=== PATIENT | male | born 1995 | race African-American/Black ===

== ENCOUNTER 2022-05-08 19:37 | Emergency (ER) | payer SELFPAY ==
[2022-05-08 19:41] VITALS: BP 131/56; PULSE 67; RESP 16; TEMP 36.4; O2SAT 99; BMI 27.3
--- NOTE | 2022-05-08 19:43 | ED_ITS ---
HPI - Skin/Abscess/Foreign Bdy General Chief complaint: Skin/Abscess/Foreign Body Stated complaint: Ringworms Time Seen by Provider: 05/08/22 19:43 Source: patient Mode of arrival: ambulatory Limitations: no limitations History of Present Illness HPI narrative: 27-year-old male presents to the ER for evaluation of dry itchy patches of skin on his abdomen that started 3 weeks ago, and now has 2 small areas on his face. The areas are intermittently itchy, dry and well demarcated. He thinks he has ringworm. The 1 on his abdomen is much improved but the ones on his face are more pronounced. He denies any other lesions on the body. No history of eczema. No fevers. MD complaint: rash Onset (ago): week(s) Location: face Severity: mild Quality: pruritic Pain Consistency: intermittent Relieving factors: none Exacerbating factors: none Context: none Associated symptoms: denies other symptoms Treatments prior to arrival: none Related Data Previous Rx's Medication Instructions Recorded nystatin 100,000 unit/gram topical 1 appl topical TID #30 grams 05/08/22 ointment Allergies Allergy/AdvReac Type Severity Reaction Status Date / Time No Known Allergies Allergy Verified 05/08/22 19:44 Review of Systems Review of Systems: Yes all other systems are reviewed and are negative Physical Exam Vital Signs: Vital Signs: Last Vital Signs Temp 97.5 F 05/08/22 19:41 Pulse 67 05/08/22 19:41 Resp 16 05/08/22 19:41 BP 131/56 L 05/08/22 19:41 Pulse Ox 99 05/08/22 19:41 O2 Del Method 05/08/22 19:41 BMI result Body Mass Index 27.3 Appearance: Alert. Oriented X3. No acute distress. HEENT: normal inspection CVS: Normal heart rate and rhythm. Pulses normal. Respiratory: No respiratory distress. Skin: Skin warm and dry. Normal skin color. Normal skin turgor. There are 2 well-demarcated patches of dry, irritated skin on the chin and left side of his forehead. There is mild discoloration on the abdominal wall, 1 cm around without any raised borders or active rash Extremities: normal inspection x4 Neuro: Oriented X 3. Grossly normal, non Medical Decision Making Differential Diagnosis Differential Diagnoses: The differential diagnosis associated with the presentation includes Tinea corporis, eczema, atopic dermatitis, cellulitis, allergic reaction, less likely cellulitis Prescription Management I considered prescription management with: Antibiotic and Other (Antifungal cream) Critical Care Time Critical Care Time Critical Care Time: No Discharge Plan Discharge Clinical Impression: Tinea corporis Patient Disposition: Home, Self-Care Instructions: Tinea Corporis (ED) Additional Instructions: An antifungal ointment was sent to the [facility] at [address] [place] [address] in [place], [place] If you have issues with this you can get any [id number] antifungal cream at any pharmacy. Prescriptions: New nystatin 100,000 unit/gram ointment 1 appl topical TID Qty: 30 0RF
== END 2022-05-08 19:56 | disposition home or self-care (01) ==
LOC: HO.ED 19:56
PROVIDERS: Emergency Provider Emergency Medicine
DX: B35.9 Dermatophytosis, unspecified (principal); B35.4 Tinea corporis
CPT/HCPCS: 99282